=== PATIENT | male | born 1985 | race Caucasian/White ===

== ENCOUNTER 2022-05-07 19:17 | Emergency (ER) | payer SELFPAY ==
[~2022-05-07] VITALS: Ht 182.9 cm; Wt 95.0 kg
[2022-05-07 19:20] VITALS: BP 193/93
[2022-05-07] MEDS ORDERED: SODIUM CHLORIDE 0.9% 1,000 ML IV ONE (19:30)
[2022-05-07] MEDS ORDERED: LEVETIRACETAM 1000MG PREMIX 100 ML IV ONE (19:30)
[2022-05-07 20:53] LABS: HEMATOCRIT. 50.7 % (42.0-52.0); HEMOGLOBIN. 16.8 g/dL (14.0-18.0); MEAN CORPUSCULAR VOLUME 96.5 fL (80.0-94.0); MEAN PLATELET VOLUME 8.1 fl (7.4-10.4); PLATELET 284 x1000/uL (130-400); RED BLOOD CELL COUNT 5.25 mill/uL (4.7-6.1); RED CELL DISTRIBUTION WIDTH 13.5 % (11.6-14.6)
[2022-05-07 20:55] LABS: CHLORIDE 104 mEq/L (98-107)
[2022-05-07 21:03] LABS: ETHANOL BLOOD < 10 mg/dL
[2022-05-07 22:12] LABS: PLATELET ESTIMATE NORMAL
== END 2022-05-07 21:02 | disposition left against medical advice (07) ==
LOC: ER 19:17
DX: Z53.21 Procedure and treatment not carried out due to patient leaving prior to being seen by health care provider (principal)
CPT/HCPCS: 36415; 80053; 80320; 85025; J7030; G0480